=== PATIENT | male | born 1985 | race Caucasian/White ===

== ENCOUNTER 2019-06-09 06:03 | Emergency (ER) | payer BC ==
[~2019-06-09] VITALS: Ht 185.4 cm; Wt 111.1 kg
--- NOTE | 2019-06-09 06:05 | NUR ---
ED Nurse Note: PT WALKED IN C/O NVD SINCE 06/07 AT 2300. PT DOES NOT RECALL EVENTS PRIOR TO NVD. PT DENIES ALCOHOL, DRUG USE, OR INGESTION OF ANYTHING ABNORMAL. PT STATES HX OF DEPRESSION. VSS, NAD.
[2019-06-09 06:20] VITALS: BP 132/77
--- NOTE | 2019-06-09 06:22 | NUR ---
ED Nurse Note: ERMD AT BEDSIDE
[2019-06-09] MEDS ORDERED: Ketorolac 30mg Inj IV ONE (06:30)
--- NOTE | 2019-06-09 06:45 | Emergency Room Report ---
History of Present Illness General Chief Complaint: Nausea, Vomiting, and Diarrhea Source: Patient Present Illness HPI Disclaimer: Please note that this report is being documented using [employer] technology. This can lead to erroneous entry secondary to incorrect interpretation by the dictating instrument. HPI: 33-year-old male presented for nausea vomiting diarrhea. Symptoms present for the last 8 hours. No fevers no coughing. Does complain of abdominal cramping that is about 6 out of 10 nonradiating. No fevers. No recent travel. No recent antibiotics. Multiple episodes of nonbloody nonbilious emesis and watery diarrhea overnight. Planes of also 10 out of 10 body aches that are aching in nature worse with movement. PMH: Anxiety and depression PSH: Reviewed Social Hx: Drinks socially, uses marijuana Allergies: Coded Allergies: No Known Allergies (Unverified , 06/09/19) Patient History Past Medical History: see triage record Reviewed Nursing Documentation: PMH: Agreed; PSxH: Agreed Review of Systems All Other Systems: negative except mentioned in HPI Physical Exam Vital Signs Date Time Temp Pulse Resp B/P (MAP) Pulse Ox O2 Delivery O2 Flow Rate FiO2 06/09/19 06:04 97.9 120 16 133/80 (97) 97 Room Air Sp02 EP Interpretation: reviewed, normal General Appearance: well appearing, no apparent distress Head: normocephalic, atraumatic Eyes: bilateral eye PERRL, bilateral eye EOMI ENT: hearing grossly normal, moist mucus membranes Neck: full range of motion, supple Respiratory: lungs clear, normal breath sounds, no rhonchi, no respiratory distress, no retraction, no wheezing Cardiovascular #1: normal peripheral pulses, no murmur, other - Patient tachycardic with regular rhythm on arrival Gastrointestinal: non tender, soft, non-distended, no guarding Genitourinary: CVA tenderness (R), CVA tenderness (L) Musculoskeletal: back normal Neurologic: alert, oriented x3, no focal defects Skin: normal color, warm/dry Medical Decision Making ER Course Differential diagnosis included but not limited to viral syndrome, influenza, gastroenteritis, food poisoning to name a few. Low suspicion for surgical abdominal disease. Abdomen nontender. Patient initially tachycardic but improved after ER observation. Laboratory studies and IV fluids given. Pain control given. Patient had persistent bilateral flank pain urinalysis was sent and showed blood with leukocytes. I did order a CT scan without contrast showed no evidence of stone or other acute inflammatory pathology. My differential still included pyelonephritis versus gastroenteritis versus viral syndrome. Due to his urinalysis with leukocytes and blood will treat as pyelonephritis and give Rocephin in the ER. No active vomiting no active diarrhea in the ER. Patient's pain improved after analgesia. He is agreeable with a trial of home medications including Zofran, analgesics, Imodium and antibiotics. Will return in 24 hours if not improved or worsened. Laboratory Tests Test 06/09/19 06:35 06/09/19 09:30 White Blood Count 18.3 K/UL (4.8-10.8) H Red Blood Count 5.56 M/UL (4.70-6.10) Hemoglobin 17.4 G/DL (14.2-18.0) Hematocrit 48.7 % (42.0-52.0) Mean Corpuscular Volume 88 FL (80-99) Mean Corpuscular Hemoglobin 31.2 PG (27.0-31.0) H Mean Corpuscular Hemoglobin Concent 35.7 G/DL (32.0-36.0) Red Cell Distribution Width 11.3 % (11.6-14.8) L Platelet Count 334 K/UL (150-450) Mean Platelet Volume 5.7 FL (6.5-10.1) L Neutrophils (%) (Auto) % (45.0-75.0) Lymphocytes (%) (Auto) % (20.0-45.0) Monocytes (%) (Auto) % (1.0-10.0) Eosinophils (%) (Auto) % (0.0-3.0) Basophils (%) (Auto) % (0.0-2.0) Differential Total Cells Counted 100 Neutrophils % (Manual) 90 % (45-75) H Lymphocytes % (Manual) 5 % (20-45) L Monocytes % (Manual) 5 % (1-10) Eosinophils % (Manual) 0 % (0-3) Basophils % (Manual) 0 % (0-2) Band Neutrophils 0 % (0-8) Platelet Estimate Adequate Platelet Morphology Normal Sodium Level 140 MMOL/L (136-145) Potassium Level 4.1 MMOL/L (3.5-5.1) Chloride Level 103 MMOL/L (98-107) Carbon Dioxide Level 25 MMOL/L (21-32) Anion Gap 12 mmol/L (5-15) Blood Urea Nitrogen 23 mg/dL (7-18) H Creatinine 1.2 MG/DL (0.55-1.30) Estimate Glomerular Filtration Rate > 60 mL/min (>60) Glucose Level 128 MG/DL (74-106) H Calcium Level 8.7 MG/DL (8.5-10.1) Total Bilirubin 0.5 MG/DL (0.2-1.0) Aspartate Amino Transferase (AST) 6 U/L (15-37) L Alanine Aminotransferase (ALT) 34 U/L (12-78) Alkaline Phosphatase 63 U/L (46-116) Total Protein 7.8 G/DL (6.4-8.2) Albumin 4.0 G/DL (3.4-5.0) Globulin 3.8 g/dL Albumin/Globulin Ratio 1.1 (1.0-2.7) Lipase 118 U/L (73-393) Urine Color Brown Urine Appearance Clear Urine pH 5 (4.5-8.0) Urine Specific [place] 1.020 (1.005-1.035) Urine Protein 2+ (NEGATIVE) H Urine Glucose (UA) Negative (NEGATIVE) Urine Ketones 1+ (NEGATIVE) H Urine Blood 2+ (NEGATIVE) H Urine Nitrite Negative (NEGATIVE) Urine Bilirubin Negative (NEGATIVE) Urine Urobilinogen 1 MG/DL (0.0-1.0) H Urine Leukocyte Esterase 1+ (NEGATIVE) H Urine RBC 2-4 /HPF (0 - 0) H Urine WBC 0-2 /HPF (0 - 0) Urine Squamous Epithelial Cells Occasional /LPF Urine Amorphous Sediment Many /LPF (NONE) H Urine Bacteria Few /HPF (NONE) Urine Mucus Few /LPF (NONE/OCC) H Microbiology Date/Time Source Procedure Growth Status 06/09/19 06:25 Nasal Nares - Final Complete 06/09/19 06:25 Nasal Nares - Final Complete CT/MRI/US Diagnostic Results CT/MRI/US Diagnostic Results : Impression FINDINGS: Lungs: The visualized lung bases are clear. There is a small hiatal hernia. Liver: Unremarkable Gallbladder/biliary system: No gallstones are identified. There is no evidence of intrahepatic or extrahepatic biliary ductal dilatation. Spleen: Unremarkable Pancreas: Unremarkable Kidneys/Bladder: No definite stone or hydronephrosis are identified. The urinary bladder is unremarkable.. Adrenal glands: Unremarkable Bowel: Appendix is normal. There is no evidence of bowel obstruction. Aorta/IVC: Unremarkable Peritoneum: There is no free fluid. Bones: Unremarkable IMPRESSION: No acute findings Hiatal hernia Normal appendix Note: Evaluation of solid organs is limited on non contrast imaging. Last Vital Signs Date Time Temp Pulse Resp B/P (MAP) Pulse Ox O2 Delivery O2 Flow Rate FiO2 06/09/19 06:20 97.9 92 16 132/77 97 Room Air Status: improved Disposition: HOME, SELF-CARE Condition: Stable Scripts Loperamide Hcl (LOPERAMIDE) 2 Mg Capsule 2 MG PO EVERY 8 HOURS PRN for Diarrhea, #10 CAP Prov: Chaitanya Lawson M.D. 06/09/19 Hydrocodone Bit/Acetaminophen 5-325* (NORCO 5-325*) 1 Each Tablet 1 TAB ORAL Q4H PRN for Severe Pain (Pain Scale 7-10), #8 TAB 0 Refills Prov: Chaitanya Lawson M.D. 06/09/19 Ibuprofen* (MOTRIN*) 600 Mg Tablet 600 MG ORAL Q8H PRN for For Pain, #30 TAB 0 Refills Prov: Chaitanya Lawson M.D. 06/09/19 Ondansetron* (ZOFRAN*) 4 Mg Tablet 4 MG ORAL Q8HR PRN for Nausea & Vomiting, #20 TAB Prov: Chaitanya Lawson M.D. 06/09/19 Cephalexin* (KEFLEX*) 500 Mg Capsule 500 MG ORAL EVERY 8 HOURS, #21 CAP Prov: Chaitanya Lawson M.D. 06/09/19 Referrals: NON PHYSICIAN (PCP) Chaitanya Lawson M.D. Jun 09, 2019 06:45
[2019-06-09 06:56] LABS: HEMATOCRIT 48.7 % (42.0-52.0); HEMOGLOBIN 17.4 G/DL (14.2-18.0); MEAN CORPUSCULAR VOLUME 88 FL (80-99); PLATELET COUNT 334 K/UL (150-450); RED BLOOD COUNT 5.56 M/UL (4.70-6.10); RED CELL DISTRIBUTION WIDTH 11.3 % (11.6-14.8); WHITE BLOOD COUNT 18.3 K/UL (4.8-10.8)
[2019-06-09 07:03] LABS: ANION GAP 12 mmol/L (5-15); BLOOD UREA NITROGEN 23 mg/dL (7-18); CALCIUM 8.7 MG/DL (8.5-10.1); CARBON DIOXIDE 25 MMOL/L (21-32); CHLORIDE 103 MMOL/L (98-107); CREATININE 1.2 MG/DL (0.55-1.30); POTASSIUM 4.1 MMOL/L (3.5-5.1); SODIUM 140 MMOL/L (136-145)
[2019-06-09 07:07] LABS: ALANINE AMINOTRANSFERASE 34 U/L (12-78); ALBUMIN/GLOBULIN RATIO 1.1 (1.0-2.7); ALKALINE PHOSPHATASE 63 U/L (46-116); ASPARTATE AMINO TRANSFERASE 6 U/L (15-37); BILIRUBIN,TOTAL 0.5 MG/DL (0.2-1.0)
[2019-06-09 07:30] VITALS: BP 108/75
--- NOTE | 2019-06-09 07:30 | NUR ---
ED Nurse Note: received pt from erwin lockwood rn. pt resting in bed without any signs or symptoms of distress. vss as documented.
--- NOTE | 2019-06-09 08:34 | NUR ---
ED Nurse Note: pt stating abdominal aching 7/10 pain. ERMD made aware.
[2019-06-09 09:30] VITALS: BP 110/79
[2019-06-09 09:38] LABS: APPEARANCE,URINE CLEAR; BILIRUBIN, URINE NEGATIVE (NEGATIVE); COLOR,URINE BROWN; GLUCOSE, URINE (UA) NEGATIVE (NEGATIVE); KETONES,URINE 1+ (NEGATIVE); LEUKOCYTE ESTERASE ,URINE 1+ (NEGATIVE); NITRITE,URINE NEGATIVE (NEGATIVE); PH,URINE 5 (4.5-8.0); PROTEIN,URINE 2+ (NEGATIVE); UROBILINOGEN,URINE 1 MG/DL (0.0-1.0)
[2019-06-09] MEDS ORDERED: Morphine Sulfate 4mg/ml Inj (IV USE ONLY) IVP ONE (10:15)
[2019-06-09] MEDS ORDERED: Omnipaque-300 100ml vial INJ PRN (10:15)
--- NOTE | 2019-06-09 10:42 | NUR ---
ED Nurse Note: pt taken to CT in stable condition.
--- NOTE | 2019-06-09 10:52 | NUR ---
ED Nurse Note: pt back from CT in stable condition.
--- NOTE | 2019-06-09 11:16 | Diagnostic Imaging Report ---
INDICATION: Abdominal pain TECHNIQUE: Continuous helical transaxial imaging of the abdomen and pelvis was obtained from the lung bases to the pubic symphysis. No intravenous contrast was administered. Coronal 2-D reformats were also obtained. Automatic Exposure Control was utilized. Total Dose length Product (DLP): 796.[address] Dose Index Volume (CTDIvol): 13.3 mGy Comparison: none FINDINGS: Lungs: The visualized lung bases are clear. There is a small hiatal hernia. Liver: Unremarkable Gallbladder/biliary system: No gallstones are identified. There is no evidence of intrahepatic or extrahepatic biliary ductal dilatation. Spleen: Unremarkable Pancreas: Unremarkable Kidneys/Bladder: No definite stone or hydronephrosis are identified. The urinary bladder is unremarkable.. Adrenal glands: Unremarkable Bowel: Appendix is normal. There is no evidence of bowel obstruction. Aorta/IVC: Unremarkable Peritoneum: There is no free fluid. Bones: Unremarkable IMPRESSION: No acute findings Hiatal hernia Normal appendix Note: Evaluation of solid organs is limited on non contrast imaging. The CT scanner at [facility] is accredited by the [employer] and the scans are performed using dose optimization techniques as appropriate to a performed exam including Automatic Exposure control.
--- NOTE | 2019-06-09 11:28 | NUR ---
ED Nurse Note: ERMD by bedside explaining result of CT along with discharge instructions. pt in stable condition.
[2019-06-09 11:30] VITALS: BP 118/77
[2019-06-09] MEDS ORDERED: IBUPROFEN600 MG ORAL (11:38)
[2019-06-09] MEDS ORDERED: NORCO 5-325 TA1 EACH ORAL (11:38)
[2019-06-09] MEDS ORDERED: CEPHALEXIN500 MG ORAL (11:38)
[2019-06-09] MEDS ORDERED: LOPERAMIDE2 MG PO (11:38)
[2019-06-09] MEDS ORDERED: ZOFRAN4 M3 ORAL (11:38)
[2019-06-09] MEDS ORDERED: cefTRIAXone 1 GM in NS 55 ML IVPB ONE (11:45)
[2019-06-09 12:07] VITALS: BP 120/75
--- NOTE | 2019-06-09 12:07 | NUR ---
ER DISCHARGE NOTE: Patient is cleared to be discharged per ERMD, pt is aox4, on room air, with stable vital signs. pt was given dc and prescription instructions, pt was able to verbalize understanding, pt id band and iv site removed without complications. pt is able to ambulate with steady gait. pt took all belongings.
== END 2019-06-09 12:07 | disposition home or self-care (01) ==
LOC: EMR 06:25
DX: R11.2 Nausea with vomiting, unspecified (principal); R19.7 Diarrhea, unspecified; F41.9 Anxiety disorder, unspecified; F32.9 Major depressive disorder, single episode, unspecified; K44.9 Diaphragmatic hernia without obstruction or gangrene
CPT/HCPCS: 36415; 74176; 80053; 81003; 83690; 85007; 85025; 86710; 96361; 96365; 96375; 99284; J0696; J1885; J2270; J2405; J7030